=== PATIENT | female | born 1990 | race Two or more races ===

== ENCOUNTER 2025-03-31 11:20 | Observation (INO) | payer BC ==
[2025-03-31 13:20] LABS: Hematocrit 36.3 % (36.0-46.0); Hemoglobin 12.2 g/dL (12.2-16.2); Mean Corpuscular Hemoglobin 30.1 pg (28.0-32.0); Mean Corpuscular Volume 89.6 fL (80.0-100.0); Nucleated Red Blood Cells % 0.0 %
[2025-03-31 13:25] LABS: Urine Protein, UAD 1+ (Negative)
[2025-03-31 13:36] LABS: Protein, Urine 41.6 mg/dL (1-14)
[2025-03-31 13:41] LABS: Alanine Aminotransferase 20 U/L (7-40); Albumin 3.8 g/dL (3.2-4.8); Alkaline Phosphatase 83 U/L (46-116); Anion Gap 10 (5-15); BUN/Creatinine Ratio 10.3 (10.0-20.0); Bilirubin, Total 0.3 mg/dL (0.2-1.0); Calcium 9.0 mg/dL (8.7-10.4); Carbon Dioxide 24 mmol/L (20-31); Chloride 106 mmol/L (98-107); Potassium 4.0 mmol/L (3.5-5.1); Sodium 140 mmol/L (136-145); Total Protein 6.4 g/dL (5.7-8.2); Uric Acid 4.0 mg/dL (3.1-7.8)
[2025-03-31 13:42] LABS: INR 0.95 (0.9-1.15); Partial Thromboplastin Time 27.1 SEC (24.5-34.5); Prothrombin Time 10.1 sec (9.3-11.8)
[2025-03-31 13:44] LABS: Blood Urea Nitrogen 6 mg/dL (9-23); Glucose 72 mg/dL (74-106)
[2025-03-31] MEDS ORDERED: PREN-96 PO (14:03)
--- NOTE | 2025-03-31 14:12 | DVH ---
BIOPHYSICAL PROFILE HISTORY: PIH TECHNIQUE: Multiple transabdominal real-time grayscale sonographic images through the gravid uterus of the fetus with duplex Doppler color flow and M-mode spectral analysis FINDINGS: BIOPHYSICAL PROFILE: breathing score: 2 movement score: 2 tone score: 2 Quantitative RUPAL score: 2 (RUPAL: 18.3 Cm.) Total score: 8 The cervix measures 4.5 cm in appears closed. Single live fetus in transverse presentation. heart rate 144 beats per minute. Grade 1 posterior placenta without previa or abruption IMPRESSION: Biophysical profile score: 8
--- NOTE | 2025-04-02 16:02 | DVHDS2 ---
Physician Discharge Progress N Final Diagnosis: 32 wks [facility] Operations or Procedures: Operations or Procedures nst reactive reviwed,sono Condition on Discharge: Good Disposition: Home Discharge Instructions: Diet: Regular Activity: No Restrictions, As Tolerated Medications: na Follow Up Care: Specialist: 2d Discharge Statement: "Patient was advised to return to the ER or call 911 if any headaches, dizziness, shortness of breath, chest pain, abdominal pain, bleeding, fevers, or worsening of medical condition. Patient was counseled about treatment plan, medications, possible side effects, patientverbalized understanding. All questions were answered to the best of my ability. This discharge took greater then 30 minutes in planning, reviewing document ation, counseling the patient, and discussing with other team members." Visit Coding OBGYN Date of Service: Mar 31, 2025 Billing Provider: LIZZETH HU DO TECHNICIAN PREVENTATIVE MEDICINE Common Visit Codes: [id number] OBS CARE (HIGH) TECHNICIAN PREVENTATIVE MEDICINE Procedure Codes: 81067-85- NON-STRESS TEST LIZZETH HU DO Apr 02, 2025 16:02
== END 2025-03-31 14:14 | disposition home or self-care (01) ==
LOC: LDRP 11:20 → UNDOADMOB 11:20 → LDRP 11:45
PROVIDERS: ADMIT Obstetrics & Gynecology; ATTEND Obstetrics & Gynecology
DX: O13.3 Gestational [pregnancy-induced] hypertension without significant proteinuria, third trimester (principal); Z3A.32 32 weeks gestation of pregnancy; Z98.890 Other specified postprocedural states
CPT/HCPCS: 36415; 76818; 80053; 81001; 81002; 82570; 84156; 84550; 85025; 85610; 85730; 94760; G0378; 59025; 76819

== ENCOUNTER 2025-04-23 15:00 | Observation (INO) | payer BC ==
[~2025-04-23] VITALS: Ht 170.2 cm; Wt 112.5 kg
[~2025-04-23 15:00] MED LIST: PREN-96 PO
--- NOTE | 2025-04-23 15:55 | DVH ---
CLINICAL HISTORY: Advanced maternal age COMPARISON: US BIOPHYSICAL PROFILE on DOS: 03/31/25 TECHNIQUE: biophysical profile was performed. Transabdominal sonographic images of the fetus were obtained. FINDINGS: The fetus is in cephalic position. heart rate measures 155 BPM. Amniotic fluid index measures 17.3 cm. The placenta is posterior in position, without visualized evidence for previa or abruption. BPP profile is an overall score of 8/8, with 2/2 points for breathing, with at least one episode of breathing over a 30 second duration during a 30 minute observation, 2/2 points for movements, with 3 or more discrete body or limb movements, 2/2 points for tone, with one or more episodes of extremity extension with return to flexion, or opening and closing of hand, and 2/2 points for amniotic fluid, with at least 1 pocket of amniotic fluid that measures 2 cm in 2 perpendicular planes. IMPRESSION: BPP score of 8/8.
--- NOTE | 2025-04-23 17:41 | DVHDS2 ---
Physician Discharge Progress N Final Diagnosis: Advanced maternal age Operations or Procedures: Operations or Procedures NST/BPP RUPAL all normal PATIENT: MARY JOHNSON ACCT: [id number] UNIT: [id number] : 1990 LOC: [facility] ROOM / BED: TRIAGE1 / A AGE / SEX: 35 / F ADM STATUS: ADM IN SERVICE 1509 ORDERING PHYSICIAN: HERMILO MACIAS DO PROCEDURE(s): BPP - BIOPHYSICAL PROFILE REASON: Advanced maternal age ORDER NUMBER(s): [id number], ACCESSION NUMBER(s): [id number] CLINICAL HISTORY: Advanced maternal age COMPARISON: US BIOPHYSICAL PROFILE on DOS: 03/31/25 TECHNIQUE: biophysical profile was performed. Transabdominal sonographic images of the fetus were obtained. FINDINGS: The fetus is in cephalic position. heart rate measures 155 BPM. Amniotic fluid index measures 17.3 cm. The placenta is posterior in position, without visualized evidence for previa or abruption. BPP profile is an overall score of 8/8, with 2/2 points for breathing, with at least one episode of breathing over a 30 second duration during a 30 minute observation, 2/2 points for movements, with 3 or more discrete body or limb movements, 2/2 points for tone, with one or more episodes of extremity extension with return to flexion, or opening and closing of hand, and 2/2 points for amniotic fluid, with at least 1 pocket of amniotic fluid that measures 2 cm in 2 perpendicular planes. IMPRESSION: BPP score of 8/8. ATED BY: KELBY MURRAY DO DICTATED DATE/TIME: 04/23/25 6224 Condition on Discharge: Stable Disposition: Home Discharge Instructions: Diet: Regular Activity: No Restrictions, As Tolerated Follow Up/Referral: as scheduled Medications: NA Follow Up Care: Discharge Statement: "Patient was advised to return to the ER or call 911 if any headaches, dizziness, shortness of breath, chest pain, abdominal pain, bleeding, fevers, or worsening of medical condition. Patient was counseled about treatment plan, medications, possible side effects, patientverbalized understanding. All questions were answered to the best of my ability. This discharge took greater then 30 minutes in planning, reviewing documentation, counseling the patient, and discussing with other team members." Visit Coding OBGYN Date of Service: Apr 23, 2025 Billing Provider: HERMILO MACIAS DO WEATHER FORECASTER Common Visit Codes: 86932-GKL/OBS SAME DATE (MOD) WEATHER FORECASTER Procedure Codes: 39537-15- NON-STRESS TEST HERMILO MACIAS DO Apr 23, 2025 17:41
== END 2025-04-23 16:23 | disposition home or self-care (01) ==
LOC: UNDOADMOB 15:00 → LDRP 15:00
PROVIDERS: ADMIT Obstetrics & Gynecology; ATTEND Obstetrics & Gynecology
DX: O62.9 Abnormality of forces of labor, unspecified (principal); Z3A.35 35 weeks gestation of pregnancy; Z98.890 Other specified postprocedural states
CPT/HCPCS: 76818; 81002; 94760; A4649; G0378; 59025; 76819

== ENCOUNTER 2025-04-30 15:04 | Observation (INO) | payer BC ==
--- NOTE | 2025-04-30 16:01 | DVH ---
CLINICAL HISTORY: Advanced maternal age. COMPARISON: US BIOPHYSICAL PROFILE on DOS: 04/23/25, US BIOPHYSICAL PROFILE on DOS: 03/31/25 TECHNIQUE: biophysical profile was performed. Transabdominal sonographic images of the fetus were obtained. FINDINGS: The fetus is in cephalic position. heart rate measures 132 BPM. Amniotic fluid index measures 18.9 cm. The placenta is fundal in position without evidence of previa or abruption. BPP profile is an overall score of 8/8, with 2/2 points for breathing, with at least one episode of breathing over a 30 second duration during a 30 minute observation, 2/2 points for movements, with 3 or more discrete body or limb movements, 2/2 points for tone, with one or more episodes of extremity extension with return to flexion, or opening and closing of hand, and 2/2 points for amniotic fluid, with at least 1 pocket of amniotic fluid that measures 2 cm in 2 perpendicular planes. IMPRESSION: BPP score of 8/8.
--- NOTE | 2025-05-04 07:39 | DVHDS2 ---
Physician Discharge Progress N Final Diagnosis: 36wks ama Operations or Procedures: Operations or Procedures nst reactive reviwed,sono Condition on Discharge: Good Disposition: Home Discharge Instructions: Diet: Regular Activity: No Restrictions, As Tolerated Medications: na Follow Up Care: Specialist: 3d Discharge Statement: "Patient was advised to return to the ER or call 911 if any headaches, dizziness, shortness of breath, chest pain, abdominal pain, bleeding, fevers, or worsening of medical condition. Patient was counseled about treatment plan, medications, possible side effects, patientverbalized understanding. All questions were answered to the best of my ability. This discharge took greater then 30 minutes in planning, reviewing documentat ion, counseling the patient, and discussing with other team members." Visit Coding OBGYN Date of Service: Apr 30, 2025 Billing Provider: LIZZETH HU DO FINANCIAL COACH Common Visit Codes: [id number] OBS CARE (HIGH) FINANCIAL COACH Procedure Codes: 29275-04- NON-STRESS TEST LIZZETH HU DO May 04, 2025 07:39
== END 2025-04-30 16:54 | disposition home or self-care (01) ==
LOC: LDRP 15:04
PROVIDERS: ADMIT Obstetrics & Gynecology; ATTEND Obstetrics & Gynecology
DX: O62.9 Abnormality of forces of labor, unspecified (principal); O09.523 Supervision of elderly multigravida, third trimester; Z3A.36 36 weeks gestation of pregnancy; Z98.890 Other specified postprocedural states
CPT/HCPCS: 76818; 81002; 94760; A4649; G0378; 59025; 76819

== ENCOUNTER 2025-05-07 15:03 | Observation (INO) | payer BC ==
--- NOTE | 2025-05-07 16:14 | DVH ---
BIOPHYSICAL PROFILE HISTORY: AMA TECHNIQUE: Multiple transabdominal real-time grayscale sonographic images through the gravid uterus of the fetus with duplex Doppler color flow and M-mode spectral analysis FINDINGS: BIOPHYSICAL PROFILE: breathing score: 2 movement score: 2 tone score: 2 Quantitative RUPAL score: 2 (RUPAL: 20.56 Cm.) Total score: 8/8 The cervix N/V Single live fetus in cephalic presentation. heart rate 157.66 beats per minute. Fundal Grade 2 placenta without previa or abruption Single live fetus at 37 weeks 6 days Biophysical profile score 8/8 corresponding to an SEAN of May 22, 2025 Estimated weight not calculated g IMPRESSION: 1. Biophysical profile score: 8/8 2. FHR: 157.66 bpm
--- NOTE | 2025-05-08 07:08 | DVHDS2 ---
Physician Discharge Progress N Final Diagnosis: 37wks ama,smoker Operations or Procedures: Operations or Procedures nst reactive reviwed,sono Condition on Discharge: Good Disposition: Home Discharge Instructions: Diet: Regular Activity: Light activity Medications: na Follow Up Care: Specialist: 3d Discharge Statement: "Patient was advised to return to the ER or call 911 if any headaches, dizziness, shortness of breath, chest pain, abdominal pain, bleeding, fevers, or worsening of medical condition. Patient was counseled about treatment plan, medications, possible side effects, patientverbalized understanding. All questions were answered to the best of my ability. This discharge took greater then 30 minutes in planning, reviewing documentation, counseling the patient, and discussing with other team members." Visit Coding OBGYN Date of Service: May 07, 2025 Billing Provider: LIZZETH HU DO ROLL MACHINE OPERATOR Common Visit Codes: [id number] INP/OBS CARE (HIGH) ROLL MACHINE OPERATOR Procedure Codes: 99097-68- NON-STRESS TEST LIZZETH HU DO May 08, 2025 07:08
== END 2025-05-07 16:15 | disposition home or self-care (01) ==
LOC: UNDOADMOB 15:03 → LDRP 15:03 → UNDODISOB 16:15
PROVIDERS: ADMIT Obstetrics & Gynecology; ATTEND Obstetrics & Gynecology
DX: O62.9 Abnormality of forces of labor, unspecified (principal); Z3A.37 37 weeks gestation of pregnancy; Z98.890 Other specified postprocedural states
CPT/HCPCS: 76818; 81002; 94760; A4649; G0378; 59025; 76819

== ENCOUNTER 2025-05-14 15:56 | Observation (INO) | payer BC ==
--- NOTE | 2025-05-14 17:00 | DVH ---
BIOPHYSICAL PROFILE HISTORY: AMA TECHNIQUE: Multiple transabdominal real-time grayscale sonographic images through the gravid uterus of the fetus with duplex Doppler color flow and M-mode spectral analysis FINDINGS: BIOPHYSICAL PROFILE: breathing score: 2 movement score: 2 tone score: 2 Quantitative RUPAL score: 2 (RUPAL: 17.4 cm, 5.2 cm.) Total score: 8/8 The cervix N/V Single live fetus in cephalic presentation. heart rate 143 beats per minute. Fundal Grade 2 placenta without previa or abruption. Debris in the amniotic fluid Single live fetus at 38 weeks 6 days Biophysical profile score 8/8 corresponding to an SEAN of 05/22/2025 Estimated weight not calculated g IMPRESSION: 1. Biophysical profile score: 8/8. 2. Gestational age 38 weeks 6 days; SEAN 05/22/2025
[2025-05-14 17:33] LABS: Urine Protein, UAD 1+ (Negative)
[2025-05-14 17:34] LABS: Protein, Urine 30.0 mg/dL (1-14)
[2025-05-14 18:04] LABS: Alanine Aminotransferase 18 U/L (7-40); Albumin 3.6 g/dL (3.2-4.8); Alkaline Phosphatase 101 U/L (46-116); Anion Gap 8 (5-15); BUN/Creatinine Ratio 8.3 (10.0-20.0); Calcium 9.1 mg/dL (8.7-10.4); Carbon Dioxide 25 mmol/L (20-31); Chloride 105 mmol/L (98-107); Glucose 106 mg/dL (74-106); Potassium 3.6 mmol/L (3.5-5.1); Sodium 138 mmol/L (136-145); Total Protein 6.2 g/dL (5.7-8.2); Uric Acid 4.1 mg/dL (3.1-7.8)
[2025-05-14 18:05] LABS: Hematocrit 35.2 % (36.0-46.0); Hemoglobin 12.0 g/dL (12.2-16.2); Mean Corpuscular Hemoglobin 30.3 pg (28.0-32.0); Mean Corpuscular Volume 89.3 fL (80.0-100.0); Nucleated Red Blood Cells % 0.2 %
[2025-05-14 18:09] LABS: Bilirubin, Total 0.3 mg/dL (0.2-1.0); Blood Urea Nitrogen 5 mg/dL (9-23)
--- NOTE | 2025-05-15 00:22 | DVHDS2 ---
Physician Discharge Progress N Follow Up Care: Discharge Statement: "Patient was advised to return to the ER or call 911 if any headaches, dizziness, shortness of breath, chest pain, abdominal pain, bleeding, fevers, or worsening of medical condition. Patient was counseled about treatment plan, medications, possible side effects, patientverbalized understanding. All questions were answered to the best of my ability. This discharge took greater then 30 minutes in planning, reviewing documentation, counseling the patient, and discussing with other team members." SANGEETHA QUIGLEY CNM May 15, 2025 00:22
[2025-05-21] MEDS ORDERED: IBU600T PO (20:41)
[2025-05-21] MEDS ORDERED: DOCU-94 PO (20:41)
== END 2025-05-14 17:27 | disposition home or self-care (01) ==
LOC: LDRP 15:56
PROVIDERS: ADMIT Obstetrics & Gynecology; ATTEND Obstetrics & Gynecology
DX: O26.893 Other specified pregnancy related conditions, third trimester (principal); R51.9 Headache, unspecified; R79.1 Abnormal coagulation profile; Z3A.38 38 weeks gestation of pregnancy; Z98.890 Other specified postprocedural states
CPT/HCPCS: 36415; 76818; 80053; 81001; 81002; 82570; 84156; 84550; 85025; 85730; 94760; A4649; G0378; 59025; 76819

== ENCOUNTER 2025-05-18 13:50 | Observation (INO) | payer BC ==
--- NOTE | 2025-05-18 15:12 | DVH ---
BIOPHYSICAL PROFILE HISTORY: AMA TECHNIQUE: Multiple transabdominal real-time grayscale sonographic images through the gravid uterus of the fetus with duplex Doppler color flow and M-mode spectral analysis FINDINGS: Biophysical score of 8/8. heart rate of 169 beats per minute. Cephalic position. RUPAL of 16.6 cm. Fundal placental location, grade 3. No placenta previa or abruptio. IMPRESSION: 1. Biophysical profile score: 8/8
--- NOTE | 2025-05-18 18:07 | DVHDS2 ---
Physician Discharge Progress N Final Diagnosis: 39wks smoker.,ama Operations or Procedures: Operations or Procedures nst reactive reviwed,sono Condition on Discharge: Good Disposition: Home Discharge Instructions: Diet: Regular Activity: No Restrictions, As Tolerated Medications: na Follow Up Care: Specialist: 2d for iol Discharge Statement: "Patient was advised to return to the ER or call 911 if any headaches, dizziness, shortness of breath, chest pain, abdominal pain, bleeding, fevers, or worsening of medical condition. Patient was counseled about treatment plan, medications, possible side effects, patientverbalized understanding. All questions were answered to the best of my ability. This discharge took greater then 30 minutes in planning, reviewing documentation, counseling the patient, and discussing with other team members." Visit Coding OBGYN Date of Service: May 18, 2025 Billing Provider: LIZZETH HU DO SHEET METAL SHOP HELPER Common Visit Codes: [id number] INP/OBS CARE (HIGH) SHEET METAL SHOP HELPER Procedure Codes: 81641-80- NON-STRESS TEST LIZZETH HU DO May 18, 2025 18:07
--- NOTE | 2025-05-20 21:29 | DVHHP2 ---
Allergies: Coded Allergies: NO KNOWN ALLERGIES (Unverified , 04/23/25) Home Meds Reported Medications Vit W/ Ferrous Fumara ( One Daily) Daily Tab, 1 TAB PO DAILY, #90 TAB 3 Refills 03/31/25 Visit Coding OBGYN Date of Service: May 20, 2025 Billing Provider: ROSA MARIA DE LEÓN CNM BULK FLUIDS HANDLER Common Visit Codes: NOT BILLABLE (H&P started on incorrect visit.) ROSA MARIA DE LEÓN CNM May 20, 2025 21:29
[2025-05-21] MEDS ORDERED: DOCU-94 PO (20:41)
[2025-05-21] MEDS ORDERED: IBU600T PO (20:41)
== END 2025-05-18 15:32 | disposition home or self-care (01) ==
LOC: UNDOADMOB 13:50 → LDRP 13:50
PROVIDERS: ADMIT Obstetrics & Gynecology; ATTEND Obstetrics & Gynecology
DX: O09.523 Supervision of elderly multigravida, third trimester (principal); F17.200 Nicotine dependence, unspecified, uncomplicated; Z3A.39 39 weeks gestation of pregnancy; Z98.890 Other specified postprocedural states
CPT/HCPCS: 76818; 81002; 94760; A4649; G0378; 59025; 76819